=== PATIENT | female | born 1965 | race Two or more races ===

== ENCOUNTER → 2019-01-10 | Outpatient (CLI) | payer OTHER ==
--- NOTE | 2019-01-10 10:37 | RAD ---
Lumbar spine, 2 views, 01/10/2019: HISTORY: Low back pain, arthritis The lumbar vertebral heights are well-maintained. There are mild scattered marginal spurs. There is minimal disc space narrowing at L4-5. No fracture or subluxation is evident. The paraspinous soft tissues are unremarkable. IMPRESSION: 1. Mild degenerative change. 2. No acute abnormality is detected. Electronically signed by: Melecio Luke MD (01/10/2019 10:34 AM) [facility]
--- NOTE | 2019-01-10 10:38 | RAD ---
Left knee, 2 views, 01/10/2019: HISTORY: Arthritis, knee pain No fracture or dislocation is identified. No joint effusion is seen. IMPRESSION: No significant left knee abnormality is detected. Electronically signed by: Melecio Luke MD (01/10/2019 10:35 AM) [facility]
== END | disposition home or self-care (01) ==
LOC: PF 08:07
PROVIDERS: ATTEND Surgery
DX: M47.896 Other spondylosis, lumbar region (principal); M48.061 Spinal stenosis, lumbar region without neurogenic claudication; M46.06 Spinal enthesopathy, lumbar region; M17.0 Bilateral primary osteoarthritis of knee
CPT/HCPCS: 72100; 73562; 94010; 94729